=== PATIENT | female | born 2000 | race Caucasian/White ===

== ENCOUNTER 2024-12-11 15:52 | Observation (INO) | payer OTHER, SELFPAY ==
[2024-12-11] VITALS (13 sets, daily range): BP systolic 128–181; BP diastolic 67–112; PULSE 76–113; RESP 16–20; TEMP 36.6–37.2; O2SAT 97–99; BMI 25.8
--- NOTE | 2024-12-11 16:48 | DI.RAD.S_ITS ---
PROCEDURE: XR HUMERUS LT 2V INDICATIONS: dog bite TECHNIQUE: 2 views of the humerus were acquired. COMPARISON: None. FINDINGS: Clothing artifact is seen, which limits evaluation. Bones: No fractures or dislocations. No suspicious bony lesions. Soft tissues: No suspicious soft tissue calcifications. No radiopaque foreign bodies are seen. IMPRESSION: No definite radiopaque foreign body is seen. No bony involvement is seen. Dictated by: Vish Castaneda M.D. on 12/11/2024 at 16:13 Approved by: Vish Castaneda M.D. on 12/11/2024 at 16:15
--- NOTE | 2024-12-11 17:40 | ED.ANIMALBIT ---
HPI - Animal Bite General Chief Complaint: Animal Bite Stated Complaint: Dog attack, Upper R arm, low L arm Time Seen by Provider: 12/11/24 17:04 Source: patient, RN notes reviewed and old records reviewed Mode of arrival: Ambulatory Limitations: no limitations History of Present Illness HPI narrative: 23-year-old female history of bipolar was at work today. She works for [employer] has a dog bite to her right upper arm and left lower arm. Happened earlier today patient denies any numbness tingling or weakness she has full range of motion she states equal hospice case manager. She states her tetanus is up-to-date in the last 5 years. She denies any other injuries. The owners of the dog were not clear about whether it is up-to-date with the its rabies vaccination. She states she does take 2 medications for her bipolar but does not recall the names. Denies any drug allergies. Vapes tobacco, denies regular alcohol, denies any recreational drugs. Related Data Previous Rx's ?Medication ?Instructions ?Recorded hydroxyzine HCl 25 mg tablet 25 mg PO BEDTIME PRN anxiety #20 02/10/24 tabs amoxicillin 875 mg-potassium 1 tab PO BID #14 tabs 12/12/24 clavulanate 125 mg tablet docusate sodium 100 mg capsule 100 mg PO BID #10 caps 12/12/24 (Colace) ondansetron 4 mg disintegrating 4 mg PO Q8H PRN nausea and 12/12/24 tablet vomiting #10 tabs oxycodone 5 mg tablet 5 mg PO Q4H PRN pain #10 tabs 12/12/24 acetaminophen 500 mg capsule 500 mg PO QID PRN pain #30 caps 12/15/24 Allergies Allergy/AdvReac Type Severity Reaction Status Date / Time No Known Drug Allergies Allergy Verified 12/14/24 15:56 Review of Systems Review of Systems ROS Unobtainable: All systems reviewed & are unremarkable except as noted in HPI and below Patient History Social History household members: family and friend(s) alcohol intake: current Smoking Status: Current every day smoker tobacco type: vaping Exam Narrative Exam Narrative: GENERAL: Alert and oriented x three, female in mild distress. HEENT: Head normocephalic, atraumatic, EOMI, pupils reactive, face symmetric, moist mucous membranes NECK: Supple, full range of motion CARDIOVASCULAR: Regular rate and rhythm without murmurs, rubs or gallops. RESPIRATORY: Breath sounds equal bilaterally, no wheezes rales or rhonchi. ABDOMEN: Soft, nontender. Normoactive bowel sounds all 4 quadrants. No guarding or rebound, rigidity, no mass : No CVA tenderness EXTREMITIES: Normal range of motion, no clubbing or edema. Neurovascularly intact. Patient has left upper inner arm has a large 10 x 8 avulsion injury into the subcutaneous, I do not visualize any blood vessels, bone, nerves patient has full range of motion with equal hospice case manager. 2+ radial pulses. No active bleeding. There is some skin still present but it is somewhat macerated and has several laceration to it. Patient has several punctures to right NEUROLOGICAL: Cranial nerves II through XII grossly intact. Moving all extremities SKIN: Warm, dry, no petechiae, no rashes or lesions. Initial Vital Signs Initial Vital Signs: Vital Signs Temperature 99.0 F 12/11/24 16:34 Pulse Rate 113 H 12/11/24 16:34 Respiratory Rate 18 12/11/24 16:34 Blood Pressure 176/112 H 12/11/24 16:34 Pulse Oximetry 99 12/11/24 16:34 Oxygen Delivery Method Room Air 12/11/24 16:34 Course Orders Ordered: Discontinued Medications Acetaminophen (Acetaminophen 325 Mg Tablet) 650 mg PO Q6H [facility] Last Admin: 12/11/24 23:42 Dose: Not Given Documented By: NESTOR Acetaminophen (Acetaminophen 325 Mg Tablet) 650 mg PO Q6H [facility] Last Admin: 12/12/24 15:00 Dose: Not Given Documented By: Admin: 12/12/24 09:26 Dose: 650 mg Documented By: Admin: 12/12/24 03:38 Dose: 650 mg Documented By: NESTOR Bupivacaine HCl (Bupivacaine 0.5% 50 Ml Mdv) 30 ml INJ INTRA-OP ONE Stop: 12/11/24 19:21 Last Admin: 12/11/24 23:43 Dose: Not Given Documented By: NESTOR Bupivacaine HCl (Bupivacaine 0.5% (Pf) 30 Ml Vial) 30 ml INJ NOW ONE Stop: 12/11/24 21:04 Last Admin: 12/11/24 21:03 Dose: 30 ml Documented By: Docusate Sodium (Docusate 100 Mg Capsule) 100 mg PO BID [facility] Last Admin: 12/12/24 09:23 Dose: 100 mg Documented By: Admin: 12/11/24 23:16 Dose: 100 mg Documented By: NESTOR Hydromorphone HCl (Hydromorphone 1 Mg/Ml Syringe) 0 mg IV Q5MIN PRN PRN Reason: Pain, Moderate (4-6) Hydroxyzine HCl (Hydroxyzine 50 Mg/Ml Inj) 50 mg IM NOW PRN PRN Reason: Pain, Moderate (4-6) Ampicillin Sodium/Sulbactam (Sodium 3 gm/ Sodium Chloride) 100 mls @ 200 mls/hr IV NOW ONE Stop: 12/11/24 17:08 Last Infusion: 12/11/24 18:48 Dose: Infused Documented By: Admin: 12/11/24 18:06 Dose: 200 mls/hr Documented By: LINDSAY Lactated Ringer's (Lactated Ringers) 1,000 mls @ 42 mls/hr IV CONT [facility] Last Infusion: 12/11/24 23:44 Dose: Infused Documented By: Admin: 12/11/24 19:44 Dose: 42 mls/hr Documented By: JOE Acetaminophen (Ofirmev) 1,000 mg in 100 mls @ 400 mls/hr IV NOW ONE Stop: 12/11/24 21:12 Last Infusion: 12/11/24 23:12 Dose: Infused Documented By: Admin: 12/11/24 20:49 Dose: 400 mls/hr Documented By: KR Lactated Ringer's (Lactated Ringers) 1,000 mls @ 100 mls/hr IV CONT [facility] Last Admin: 12/11/24 23:17 Dose: 100 mls/hr Documented By: NESTOR Ampicillin Sodium/Sulbactam (Sodium 3 gm/ Sodium Chloride) 100 mls @ 200 mls/hr IV Q8H [facility] Last Admin: 12/12/24 17:58 Dose: 200 mls/hr Documented By: Infusion: 12/12/24 11:08 Dose: Infused Documented By: Admin: 12/12/24 10:38 Dose: 200 mls/hr Documented By: Infusion: 12/12/24 03:07 Dose: Infused Documented By: Admin: 12/12/24 02:04 Dose: 200 mls/hr Documented By: NESTOR Ibuprofen (Ibuprofen 400 Mg Tablet) 800 mg PO NOW ONE Stop: 12/11/24 17:11 Last Admin: 12/11/24 18:06 Dose: Not Given Documented By: LINDSAY Ibuprofen (Ibuprofen 600 Mg Tablet) 600 mg PO Q6H [facility] Last Admin: 12/12/24 16:00 Dose: Not Given Documented By: Admin: 12/12/24 10:37 Dose: 600 mg Documented By: Admin: 12/12/24 03:38 Dose: 600 mg Documented By: Admin: 12/11/24 23:16 Dose: 600 mg Documented By: NESTOR Ketorolac Tromethamine (Ketorolac 30 Mg/Ml Vial) 15 mg IV NOW ONE Stop: 12/11/24 18:08 Last Admin: 12/11/24 18:19 Dose: 15 mg Documented By: LINDSAY Meperidine HCl (Meperidine 50 Mg/Ml Inj) 25 mg IV PACUNOW PRN PRN Reason: Moderate pain or shivering Metoclopramide HCl (Metoclopramide 10 Mg/2 Ml Inj) 10 mg IV NOW PRN PRN Reason: Nausea And Vomiting Naloxone HCl (Naloxone 0.4 Mg/Ml Vial) 0.2 mg IV Q2MIN PRN PRN Reason: Opiate Reversal Naloxone HCl (Naloxone 0.4 Mg/Ml Vial) 0.2 mg IV Q2MIN PRN PRN Reason: Opiate Reversal Ondansetron HCl (Ondansetron 4 Mg/2 Ml Inj) 4 mg IV NOW PRN PRN Reason: Nausea And Vomiting Last Admin: 12/11/24 22:18 Dose: 4 mg Documented By: JOE Ondansetron HCl (Ondansetron 4 Mg Odt) 4 mg PO Q4HR PRN PRN Reason: Nausea And Vomiting Ondansetron HCl (Ondansetron 4 Mg/2 Ml Inj) 4 mg IV Q4HR PRN PRN Reason: Nausea And Vomiting Oxycodone HCl (Oxycodone Ir 5 Mg Tablet) 5 mg PO PACUNOW PRN PRN Reason: Mild or moderate pain Last Admin: 12/11/24 22:18 Dose: 5 mg Documented By: JOE Oxycodone HCl (Oxycodone Ir 5 Mg Tablet) 5 mg PO Q3H PRN PRN Reason: Pain, Moderate (4-6) Rabies Immune Globulin (Rabies Immune Globulin 150 Unit/Ml) 1,497 unit 20 unit/kg (1497 unit) IM NOW ONE Stop: 12/11/24 17:12 Last Admin: 12/11/24 21:43 Dose: 1,497 unit Documented By: Rabies Vaccine (Rabies Vaccine (Rabavert) 2.5 Units Syringe) 2.5 units IM .ONCE ONE Stop: 12/11/24 17:12 Last Admin: 12/11/24 21:45 Dose: 2.5 units Documented By: DAVID Vital Signs Vital signs: Vital Signs - 8 hr 12/11/24 16:34 12/11/24 17:55 12/11/24 18:00 Temperature 99.0 F Pulse Rate 113 H 104 H 109 H Respiratory Rate 18 Blood Pressure 176/112 H Pulse Oximetry 99 99 99 Oxygen Delivery Method Room Air 12/11/24 18:30 Temperature Pulse Rate 107 H Respiratory Rate Blood Pressure Pulse Oximetry 98 Oxygen Delivery Method MDM - Animal Bite Lab Data Labs: Point of Care Testing Test Results Negative MDM Narrative Medical decision making narrative: 23-year-old female with significant dog bite to the left upper arm she appears to be neurovascularly intact appears to be only in the subcutaneous tissue, x-ray does not show any foreign body, patient has a normal hospice case manager, full motion, normal sensation with 2+ radial pulses bilaterally. Pain is fairly well controlled at this time. She is unsure of rabies vaccination status of the animal. Patient received IV antibiotics, states her tetanus is up-to-date. We will discuss with General surgery and/or orthopedic surgery to see about repair in the OR versus transfer as this seems more significant than appropriate in the ED. Spoke with Dr. Munoz, general surgery at 1730: Is currently in the OR review images. He asked that we contact Orthopedic surgery to see if they would be interested in repair. Dr. Baron, Orthopedic surgery @ 1742 Dr. Baron in the department 1850, plan for OR tonight. Patient received IV antibiotics, ibuprofen, rabies vaccine and immunoglobulin (in OR). Patient was unsure of rabies status of the animal. Discharge Plan Departure Patient Disposition: Admitted to Surgery Clinical Impression: Open wound of left upper arm due to dog bite Dog bite of right forearm Qualifiers: Encounter type: initial encounter Qualified Code(s): S51.851A - Open bite of right forearm, initial encounter Admit Date/Time: 12/11/24 18:57 Admit Provider: Ирина Baron
[2024-12-11] MEDS: AMPICILLIN/SULBACTAM 3 GM 3 GM in SODIUM CHLORIDE 0.9% 100 ML IV (18:06)
[2024-12-11] MEDS: KETOROLAC 30 MG/ML VIAL 15 MG IV (18:19)
--- NOTE | 2024-12-11 19:13 | P.HP_ITS ---
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 They are unsure if the dog is vaccinated. The patient is up-to-date on her tetanus. She was attacked on her left upper arm and right forearm. She has been NPO since last night with solid food and had a small glass of water prior to coming to the ER. Past medical history bipolar Physical exam reveals a well-developed well-nourished 23-year-old in no acute distress Evaluation of her left upper extremity demonstrates that she has a proximally a 12 x 10 cm laceration with underlying adipose tissue exposed. There was no active bleeding. Her sensation is intact to light touch in the radial, ulnar and median nerve distributions. She can flex her biceps triceps, EPL, FPL and interosseous muscles. Her radial pulses 2+ and she has brisk capillary refill. Evaluation of her left upper extremity demonstrates that she has 2 small punctures approximately 1 cm on the dorsal aspect of her forearm and volar asp ect of her forearm with significant ecchymosis. Her sensation is intact to light touch in the radial, ulnar and median nerve distributions. She can flex her biceps triceps, EPL, FPL and interosseous muscles. Her radial pulses 2+ and she has brisk capillary refill. X-rays obtained of her left humerus demonstrate no evidence of fracture, dislocation, soft tissue lesion or foreign body. [facility] Social History Smoking Status: Current every day smoker Meds Home Medications and Allergies Home Medications ?Medication ?Instructions ?Recorded ?Confirmed ?Type hydroxyzine HCl 25 mg tablet 25 mg PO BEDTIME PRN anxi ety #20 02/10/24 02/10/24 Rx tabs Allergies Allergy/AdvReac Type Severity Reaction Status Date / Time No Known Drug Allergies Allergy Verified 12/11/24 16:39 Exam Vital Signs (past 8 hours): - 12/11/24 16:34 12/11/24 17:55 12/11/24 18:00 Temperature 99.0 F Pulse Rate 113 H 104 H 109 H Respiratory Rate 18 Blood Pressure 176/112 H Pulse Oximetry 99 99 99 Oxygen Delivery Method Room Air 12/11/24 18:30 Temperature Pulse Rate 107 H Respiratory Rate Blood Pressure Pulse Oximetry 98 Oxygen Delivery Method Oxygen Delivery Method Room Air Assessment & Plan Assessment and plan (1) Dog bite of right forearm: Qualifiers: Encounter type: initial encounter Qualified Code(s): S51.851A - Open bite of right forearm, initial encounter; W54.0XXA - Bitten by dog, initial encounter Status: Acute (2) Open wound of left upper arm due to dog bite: Status: Acute Plan I discussed with the patient the risks, benefits and alternatives of surgical versus nonsurgical treatment to include but not limited to damage to arteries, veins, nerves, need for additional surgery, risks of infection and risks of repeat washouts as well as the possibility of incomplete closure of the left upper extremity wound. My plan is to do an irrigation incision debridement and all other indicated procedures, keep her overnight for 24 hours of IV antibiotics and discharge her home with oral antibiotics with close follow up she understands all the risks she understands the risks of not treating this which would include infection as well as lack of wound closure. Time-Based Coding :: [TOTAL MINUTES] spent with patient and on the chart (including review of chart, obtaining history, exam, reviewing outside data, placing orders, documenting exam and treatment plan, and counseling patient) on [DATE]. PROFEE Records Management Associate Document charge(s): Yes
--- NOTE | 2024-12-11 19:17 | PC.NURSE ---
Spoke with SHAKA Rhodes OR regarding rabies vaccination. Awaiting to hear from dog owners regarding vaccination status. Discussed giving vaccination and immunoglobulin during surgery with Dr Baron due to the need of the immunoglobulin being administered subcutaneously around the wound site. Pt undressed and placed in gown for transport to OR. Report given to SHAKA Kaur for the remainder of the time that pt is in the ED.
--- NOTE | 2024-12-11 19:27 | PM.PREOP ---
Pre-operative Note COVID-19 COVID-19 status: Not tested Interval Note History & Physical reviewed/Exam performed by Physician: Yes Changes to H&P: No
[2024-12-11] MEDS: LACTATED RINGERS 1,000 ML 42 ML IV (19:44)
[2024-12-11] MEDS: ACETAMINOPHEN IV 1,000 MG/100 ML VIAL 400 MG IV (20:49)
--- NOTE | 2024-12-11 20:54 | SUR.OPER ---
Supine on padded OR bed, head on pillow, arms resting on hand tables, legs uncrossed, safety belt at thigh, tape over blanket over lower legs.
[2024-12-11] MEDS: RABIES IMMUNE GLOBULIN 150 UNIT/ML 1497 UNIT IM (21:43)
[2024-12-11] MEDS: RABIES VACCINE (RABAVERT) 2.5 UNITS SYRINGE IM (21:45)
--- NOTE | 2024-12-11 21:53 | P.OP_ITS ---
Operative Date/Time/Diagnoses Date of procedure: 12/11/24 Time of procedure: 08:45 Pre-op diagnosis: Dog bites left upper arm and right forearm Post-op diagnosis: same Procedure & Clinicians Procedure: Irrigation and debridement left upper arm and closure Irrigation and debridement right forearm Same procedure(s) as scheduled: Yes Surgeon: Ирина Baron Assisted?: Yes Shake Sawyer: Delmis Barraza Anesthesia Type: General Operative Notes Findings: see below Closure Type: primary Specimen(s): none sent Applied: other (packing right forearm) Estimated Blood Loss (mL): 50 Blood products transfused: none Procedure in detail: The patient was met in the emergency room her left upper and right upper extremities were signed as the correct operative sites. The patient was taken back to the operating room and placed in supine position with her arms o utstretched on armboards bilaterally. General anesthesia was induced. The patient was prepped and draped in the standard sterile fashion. A time-out was performed confirming the correct patient, correct procedure correct extremities and initials on the operative sites. The left upper extremity wound was explored and the bite when down only to the subcutaneous fat. Some of the fat was debrided. And a nonviable skin flap was also debrided. We then copiously irrigated the wound with 9 L of fluid. We then closed the wound with 2-0 Monocryl subcutaneously and 3-0 nylon in the skin. We also used a hemostat to open up the dog bites on the right volar and dorsal forearm and we copiously irrigated the dog bites and placed one wick of iodoform gauze in the volar wound and dorsal wound. A sterile dressing was applied consisting of Xeroform plain gauze and Medipore tape on the left upper extremity and Xeroform plain gauze cast padding and Webril on the right upper extremity prior to placing the dressing 30 cc of 0.5% Marcaine plain was injected into the dog bites and a vial of rabies immunoglobulin was injected around the dog bite on the left upper extremity. A total of 1500 IU was injected. The patient was awoken and taken to the recovery room in stable condition. An executive marketing assistant was utilized for positioning irrigating and closing. Complications: none Post-operative Condition: stable Disposition: PACU Plan for aftercare: 1)Admit for 24 hours of IV antibiotics and pain control. 2) will pull packing on 12/14/24
[2024-12-11] MEDS: ONDANSETRON 4 MG/2 ML INJ IV (22:18)
[2024-12-11] MEDS: DOCUSATE 100 MG CAPSULE PO (23:16)
[2024-12-11] MEDS: IBUPROFEN 600 MG TABLET PO (23:16)
[2024-12-11] MEDS: LACTATED RINGERS 1,000 ML 100 ML IV (23:17)
[2024-12-12] VITALS: BP 139/81; PULSE 90; RESP 18; O2SAT 66
[2024-12-12 01:00] VITALS: BP 144/85; PULSE 95; RESP 18; TEMP 36.2; O2SAT 99
[2024-12-12 02:00] VITALS: BP 131/76; PULSE 88; RESP 18; O2SAT 98
[2024-12-12] MEDS: AMPICILLIN/SULBACTAM 3 GM 3 GM in SODIUM CHLORIDE 0.9% 100 ML IV ×3 (02:04→17:58)
[2024-12-12] MEDS: IBUPROFEN 600 MG TABLET PO ×2 (03:38→10:37)
[2024-12-12] MEDS: ACETAMINOPHEN 325 MG TABLET 650 MG PO ×2 (03:38→09:26)
[2024-12-12 05:48] VITALS: BP 135/78; PULSE 87; RESP 18; TEMP 36.5; O2SAT 97
[2024-12-12 08:00] VITALS: BP 136/79; PULSE 86; RESP 17; TEMP 36.8; O2SAT 99
[2024-12-12] MEDS: DOCUSATE 100 MG CAPSULE PO (09:23)
--- NOTE | 2024-12-12 11:52 | CM.DANOTE ---
Initial DCP Assessment Note. Review EMR and PT Interview. Met with patient at bedside to discuss discharge needs.PT is alert x 4 sitting up in bed.. Independent. Payor:??Sachin PCP: ?Cindy Summary & Plan:?Arrived to ED c/o dog bites: RUE and LUE. Plan: OR Washout. IV ABX. Discharge Planning/Care Management CM Discharge Assessment Start: 12/11/24 19:43 Freq: Status: Active Protocol: Document 12/12/24 11:50 SM (Rec: 12/12/24 11:52 SM [id number]) Discharge Planning Assessment Assigned Discharge Merary Mcknight RN CM Instrument Checker Provider Cindy Dominguez Advance Directives? No History Provided By Patient Prior Living House Arrangements Household Members family,friend(s) Type of Drives own vehicle transporation used prior to admit Independent with ADL Yes 's Is patient alert and Yes oriented? Barriers to No Discharge Discharge Plan Home Review Status In Process Please Provide Date 12/12/24 Initial DC Assessment Was Performed Next Review Type Continued Stay Review
--- NOTE | 2024-12-12 12:22 | PM.DS.IH.1 ---
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 They are unsure if the dog is vaccinated. The patient is up-to-date on her tetanus. She was attacked on her left upper arm and right forearm. She has been NPO since last night with solid food and had a small glass of water prior to coming to the ER. Interval history: She denies any fevers, chills, night sweats. Her pain is well-controlled. Past medical history bipolar Physical exam reveals a well-developed well-nourished 23-year-old in no acute distress Evaluation of her left upper extremity demonstrates that she a dressing that is clean, dry and intact. She fires her deltoid, EPL, FPL and interosseous muscles. Her sensation intact to light touch in the radial, ulnar and median nerve distributions. She has brisk capillary refill in all fingers. Evaluation of her right upper extremity demonstrates her dressing is intact and clean and dry.She fires her deltoid, EPL, FPL and interosseous muscles. Her sensation intact to light touch in the radial, ulnar and median nerve distributions. She has brisk capillary refill in all fingers. Discharge Providers Provider Date of admission: 12/11/24 18:57 Discharge Date: 12/12/24 Primary care physician: Dalia White DO Discharge provider: Ирина Baron DO Summary Hospital Course Discharge Diagnosis: Dog bite left upper extremity and right forearm Hospital Course: She was admitted and taken to the operating room for washout of bilateral upper extremity dog bites. Her left upper extremity was primarily closed. Her right forearm dog bites were I indeed and lonnie of iodoform gauze were placed into the volar and dorsal bites. She was admitted for 24 hours of IV antibiotics and will be discharged after her 7:00 p.m. dose on 12/12/2024. Status at Discharge Cognitive/behavioral status at discharge: oriented Functional status at discharge: independent ambulation Overall status at discharge: patient is back to baseline Time Spent with Patient Time spent: Less than 30 minutes Exam Vital Signs (past 8 hours): - 10/25/25 05:48 12/12/24 08:00 Temperature 97.7 F 98.3 F Pulse Rate 87 86 Respiratory Rate 18 17 Blood Pressure 135/78 136/79 Pulse Oximetry 97 99 Oxygen Delivery Method Room Air Oxygen Flow Rate 0 PFSH Social History household members: family and friend(s) Smoking Status: Current every day smoker alcohol intake: current Discharge Assessment & Plan Assessment and Plan Assessment: Bilateral upper extremity dog bites. Plan of Treatment: Discharge home on oral antibiotics and follow up Saturday for wound check. Discharge Plan Discharge Plan Patient Disposition: Home Provider Discharge Comment: PROCEDURE: Incision and Drainage of the Right and Left Arms SURGEON: Dr. Baron DATE: 12/11/24 Dressings: You have a simple dressing in place to the right and left arms. Leave the dressings in place until follow up with Dr. Baron. You may shower so long as you keep your dressings clean and dry. Cover the dressings in a garbage bag if you are going to shower. Activity: Do not use the operative hands until instructed by your provider You should not be moving the fingers or lifting anything with the operative hand No pushing, pulling, lifting or weight bearing with the operative hand at this time Pain Control: Elevate the surgery site as much as possible. This means that the level of the hand must be above the heart. Take pain medications as prescribed Follow Up: You should follow up in the Orthopedic Office on Saturday12/14/24 and 12/18/24. The office should call you Saturday to give you an appointment time. Call the [facility] at [phone]. Return Precautions: If you develop any of the following symptoms during working hours, please contact the [facility] at [phone]. -Temperature greater than 100.5 taken twice by 2 hours -Difficulty breathing -Bleeding completely through the dressing -Fevers and chills -Increased pain that is unrelieved by ice, elevating the surgery site, and medications -Redness or drainage at the incision site After working hours, please go to the [facility] Emergency Room. Medications: Acetaminophen 325 mg - Take 3 tablets by mouth every 8 hours as needed for mild pain Oxycodone 5 mg - Take 1 tablets by mouth every 4 hours as needed for moderate to severe pain. Do not drive or operate machinery while taking oxycodone Ondansetron 4 mg - Place 1 tablet under your tongue every 8 hours as needed for nausea Colace 100 mg - Take 1 tablet by mouth twice a day as needed for Constipation. Drink plenty of water Augmentin (Amox/Clav 875/125mg) - Take 1 tablet twice a day for 7 days. Take the medication until it is gone. You must finish the entire prescription of this antibiotic. Discharge orders & Medications Prescriptions: Continued hydroxyzine HCl 25 mg tablet 25 mg PO BEDTIME PRN (Reason: anxiety) Qty: 20 0RF No Action ondansetron 4 mg tablet,disintegrating 4 mg PO Q8H PRN (Reason: nausea and vomiting) Qty: 10 0RF docusate sodium [Colace] 100 mg capsule 100 mg PO BID Qty: 10 0RF acetaminophen 500 mg capsule 500 mg PO QID PRN (Reason: pain) Qty: 30 0RF amoxicillin-pot clavulanate 875-125 mg tablet 1 tab PO BID Qty: 14 0RF oxycodone 5 mg tablet 5 mg PO Q4H PRN (Reason: pain) Qty: 10 0RF Follow up/Referrals: Dalia White DO [Primary Care Provider, Family Practice] Skin/Wound/Dressing Care Other wound treatment: You received a rabies vaccine as weel as initial rabies immunoglobulin. You need to receive an additional 3 vaccines on: Day 3 - Dec 14 Day 7 - Dec 18 Day 14 - Dec 25. Visit Report/Discharge Packet Instructions: DI for Constipation, DI for Prescription Opioid Use, DI for Incision and Drainage, DI for Dog Bite, [facility]: Wound Care Stand Alone Forms: Patient Portal/API Discharge Data Primary Care Provider: Dalia White Attending Provider: Ирина Baron Admit Date/Time: 12/11/24 18:57 Quality VTE Deep Vein Thrombosis/Pulmonary Embolism Present on Admission: No IH PROFEE Charge Codes Discharge inpatient/observation: 36639
--- NOTE | 2024-12-12 19:57 | PC.NURSE ---
Discharge: Pt received last dose of IV antibiotics. Welding Engineer of the dog who bit her called. He reports his dog has had rabies vaccine. No information was given about the patient to him. Pt told what optometrist/practice owner of dog had said. However recommended she see written proof the dog has been vaccinated, if optometrist/practice owner doesn't comply she knows when her next rabies vaccine is due and she should keep the dates the doctor has already made. Or speak with her doctor if she has any concerns about the vaccine. MD here earlier and gave pt d/c instructions. Pt is eating voiding, denies pain. Discharge packet given and reviewed. Questions answered. Pt d/c home via auto with spouse. They had picked up rx earlier.
== END 2024-12-12 19:30 | disposition home or self-care (01) ==
LOC: ED 18:35 → AC 19:12
PROVIDERS: Admitting Provider Orthopaedic Surgery; Emergency Provider Emergency Medicine; PCP Family Medicine; Referring Provider Emergency Medicine; Visit Provider Orthopaedic Surgery
PROC: (CPT 12034; principal; 2024-12-11 20:00)
DX: S41.152A Open bite of left upper arm, initial encounter (principal); S51.851A Open bite of right forearm, initial encounter; W54.0XXA Bitten by dog, initial encounter; F41.9 Anxiety disorder, unspecified; Y93.89 Activity, other specified; Y99.0 Civilian activity done for income or pay; Z23 Encounter for immunization
CPT/HCPCS: 12034; 36415; 73060; 81025; 90377; 90471; 90675; 96365; 96366; 96375; 99284; G0378; J0131; J0295; J1100; J1171; J1885; J2250; J2405; J2704; J3010; J7050; J7120

== ENCOUNTER 2024-12-14 16:27 | Emergency (ER) | payer OTHER, SELFPAY ==
[2024-12-11 19:43] VITALS: BMI 25.8
[2024-12-14 16:42] VITALS: BP 162/107; PULSE 98; RESP 15; TEMP 36.9; O2SAT 100; BMI 25.8
--- NOTE | 2024-12-14 16:51 | ED.RECABL ---
HPI - Recheck/Abnormal Lab/Rx <Flores Shultz PA-C - Last Filed: 12/14/24 17:31> General Chief Complaint: Recheck/Abnormal Lab/Rx Stated Complaint: rabbies shot Time Seen by Provider: 12/14/24 16:34 Source: patient Mode of arrival: Ambulatory History of Present Illness HPI narrative: Ms. Merritt Anders is a very pleasant 23-year-old female with a past medical history of bipolar disorder who presents to the emergency department for her 2nd rabies vaccine. On 12/11/2024 the patient was attacked by a English Graf while she was working for [employer]. She did not know this dog or the owners. She came to the ER and had large bite wounds to the left upper arm and also wounds to the right forearm. She was subsequently taken to the operating room where the orthopedic surgeon washed out her wounds. At the time of the injury she was unsure of the dog's vaccination status so she did receive rabies immune globulin and day 0 rabies vaccine. Since then, she did touch base with the dog owners and they claim that the dog has had its vaccines however there is no proof of this. They would like to continue with the rabies vaccine today. They are planning to contact the police tomorrow, I did encourage them to contact animal control for possible quarantine of the animal or if and was put down to be tested for rabies so she does not need to continue getting the rabies vaccines if it is not needed. The patient is on antibiotics and followed up with her orthopedic surgeon today and actually came from that appointment where her wounds were addressed. She denies any fevers, chills, redness or pus draining from the wounds. She is here with her mom. Related Data Previous Rx's ?Medication ?Instructions ?Recorded hydroxyzine HCl 25 mg tablet 25 mg PO BEDTIME PRN anxiety #20 02/10/24 tabs acetaminophen 500 mg capsule 500 mg PO QID PRN pain #30 caps 12/12/24 amoxicillin 875 mg-potassium 1 tab PO BID #14 tabs 12/12/24 clavulanate 125 mg tablet docusate sodium 100 mg capsule 100 mg PO BID #10 caps 12/12/24 (Colace) ondansetron 4 mg disintegrating 4 mg PO Q8H PRN nausea and 12/12/24 tablet vomiting #10 tabs oxycodone 5 mg tablet 5 mg PO Q4H PRN pain #10 tabs 12/12/24 Allergies Allergy/AdvReac Type Severity Reaction Status Date / Time No Known Drug Allergies Allergy Verified 12/14/24 15:56 Review of Systems <Flores Shultz PA-C - Last Filed: 12/14/24 17:31> Review of Systems ROS Unobtainable: All systems reviewed & are unremarkable except as noted in HPI and below Patient History <Flores Shultz PA-C - Last Filed: 12/14/24 17:31> Social History household members: family and friend(s) alcohol intake: current tobacco type: vaping Exam <Flores Shultz PA-C - Last Filed: 12/14/24 17:31> Narrative Exam Narrative: GENERAL: 23 year old patient appears stated age. Well-developed patient, in no acute distress. HEAD: Atraumatic. Normocephalic. NECK: Trachea midline. Cervical ROM intact. CARDIOVASCULAR: Regular rate RESPIRATORY: ?Nonlabored respirations. ?Speaking in clear, full sentences. EXTREMITIES: Left upper arm and Right forearm dressing kept in place as patient just came from ortho clinic. 2+ radial pulses BL, SITLT distribution median, ulnar, radial nerves bilaterally. NEURO: AOx3. ?Clear speech. ?Moves all 4 extremities appropriately. SKIN: Warm, dry. Initial Vital Signs Initial Vital Signs: Vital Signs Temperature 98.4 F 12/14/24 16:42 Pulse Rate 98 H 12/14/24 16:42 Respiratory Rate 15 12/14/24 16:42 Blood Pressure 162/107 H 12/14/24 16:42 Pulse Oximetry 100 12/14/24 16:42 Oxygen Delivery Method Room Air 12/14/24 16:42 <Valorie Marie MD - Last Filed: 12/14/24 23:50> Initial Vital Signs Initial Vital Signs: Vital Signs Temperature 98.4 F 12/14/24 16:42 Pulse Rate 98 H 12/14/24 16:42 Respiratory Rate 15 12/14/24 16:42 Blood Pressure 162/107 H 12/14/24 16:42 Pulse Oximetry 100 12/14/24 16:42 Oxygen Delivery Method Room Air 12/14/24 16:42 Course <Flores Shultz PA-C - Last Filed: 12/14/24 17:31> Orders Ordered: Discontinued Medications Rabies Vaccine (Rabies Vaccine (Rabavert) 2.5 Units Syringe) 2.5 units IM .ONCE ONE Stop: 12/14/24 16:50 Last Admin: 12/14/24 17:00 Dose: 2.5 units Documented By: ES Vital Signs Vital signs: Vital Signs - 8 hr 12/14/24 16:42 12/14/24 17:25 Temperature 98.4 F Pulse Rate 98 H Respiratory Rate 15 Blood Pressure 162/107 H 143/94 H Pulse Oximetry 100 Oxygen Delivery Method Room Air <Valorie Marie MD - Last Filed: 12/14/24 23:50> Orders Ordered: Discontinued Medications Rabies Vaccine (Rabies Vaccine (Rabavert) 2.5 Units Syringe) 2.5 units IM .ONCE ONE Stop: 12/14/24 16:50 Last Admin: 12/14/24 17:00 Dose: 2.5 units Documented By: ES Vital Signs Vital signs: Vital Signs - 8 hr 12/14/24 16:42 12/14/24 17:25 Temperature 98.4 F Pulse Rate 98 H Respiratory Rate 15 Blood Pressure 162/107 H 143/94 H Pulse Oximetry 100 Oxygen Delivery Method Room Air MDM - Recheck/Abnormal Lab/Rx <Flores Shultz PA-C - Last Filed: 12/14/24 17:31> Medical Records Attestation: I reviewed the patient's medical records. MDM Narrative Medical decision making narrative: 23-year-old female with a past medical history of bipolar disorder who presents to the emergency department for her 2nd rabies vaccine. Mom contributes to the history. Patient had dog bite to left upper arm, right forearm, was taken to the operating room by Dr. Baron. She just came from orthopedic clinic prior to this ER visit. Differential diagnosis includes but is not limited to dog bite, subsequent rabies vaccine, etc. On exam patient is in no acute distress, nontoxic appearing, she has dressings in place on the left upper arm and right forearm wounds which I did not remove as they were just placed in the orthopedic clinic prior to this ED visit. At the time of the dog bite attack, the patient was unsure of the dog's vaccination status. Both her and her mom state that she was able to reach out to the dog owners and they say that the dog is vaccinated however they have provided no proof of this. Discussed with the patient that if she is able to get prove that the dog is up-to-date on his vaccines, or if the dog is subsequently put down and tested for rabies and is negative then she does not need to complete the rest of the rabies series. However today given the unclear nature, she would like to go ahead with her 2nd rabies vaccine. Discussed strict ER return precautions, continued wound care as advised by Orthopedics. Provided patient with dates for vaccine 3 and 4. She verbalized understanding of all information agreeable with the plan. She is ambulatory and stable for discharge home. Discharge Plan Departure Patient Disposition: Home Clinical Impression: Encounter for repeat administration of rabies vaccination Instructions: DI for Rabies Vaccine Activity Restrictions/Additional Instructions: Dear Ms. Gómez, Thank you for coming to the emergency department. Today you were evaluated for your 2nd dose of the rabies vaccine. As we discussed, you do not need to complete this vaccine series if there is proof that the dog has up-to-date vaccination against rabies or if the dog is put down and test negative for rabies. Otherwise please return to the ER for days 7 and 14. <del>Day</del> <del>0:</del> <del>Saturday,</del> <del>November</del> <del>24</del> <del>Day</del> <del>3:</del> <del>Saturday,</del> <del>November</del> <del>27</del> Day 7: December 18 Day 14: Saturday, December 25 Please follow the recommendations of your orthopedic surgeon for wound care, please return to the ER with any concerns, fevers, etc. Complete all antibiotics. Please use RICE therapy for your pain in addition to ibuprofen/acetaminophen. Rest the painful area. Ice the area of pain/swelling for at least 15 minutes, 4x a day. Compress the area of swelling using a brace, wrap, or splint if applied. Elevate the painful or swollen extremity by supporting it above the level of the heart with pillows when sitting or laying. Please take Ibuprofen (Motrin/Advil) or Acetaminophen (Tylenol) for pain. These are available over the counter. You may take Ibuprofen 600 mg every 8 hours with food for pain. You may also take Acetaminophen 650 mg every 4-6 hours for pain. Do not exceed 3000 mg of Tylenol a day as this can cause liver damage. Do not drink alcohol with either of these medications. Please follow up with your primary care doctor within the next 2-3 days for ER follow-up. (If you do not have a PCP you can call [phone]. ?to schedule an appointment with an [facility] Primary Care Provider) IF YOU DEVELOP ANY NEW OR WORSENING SYMPTOMS, RETURN TO THE ER! Please read the attached instructions, they highlight more specific treatments and interventions for you at home. Thank you for letting me participate in your care, Flores Shultz PA-C Prescriptions: No Action ondansetron 4 mg tablet,disintegrating 4 mg PO Q8H PRN (Reason: nausea and vomiting) Qty: 10 0RF docusate sodium [Colace] 100 mg capsule 100 mg PO BID Qty: 10 0RF acetaminophen 500 mg capsule 500 mg PO QID PRN (Reason: pain) Qty: 30 0RF amoxicillin-pot clavulanate 875-125 mg tablet 1 tab PO BID Qty: 14 0RF oxycodone 5 mg tablet 5 mg PO Q4H PRN (Reason: pain) Qty: 10 0RF hydroxyzine HCl 25 mg tablet 25 mg PO BEDTIME PRN (Reason: anxiety) Qty: 20 0RF Referrals: Dalia White DO [Primary Care Provider, Family Practice] Stand Alone Forms: Patient Portal/API ED Sign-out <Valorie Marie MD - Last Filed: 12/14/24 23:50> Cosign ED Attending Conrado Attestation: I was immediately available in the department for consultation throughout this patient's visit. Valorie Marie MD
[2024-12-14] MEDS: RABIES VACCINE (RABAVERT) 2.5 UNITS SYRINGE IM (17:00)
[2024-12-14 17:25] VITALS: BP 143/94
== END 2024-12-14 17:29 | disposition home or self-care (01) ==
PROVIDERS: Emergency Provider Physician Assistant; PCP Family Medicine
DX: Z20.3 Contact with and (suspected) exposure to rabies (principal); Z23 Encounter for immunization
CPT/HCPCS: 90471; 90675; 99283